=== PATIENT | male | born 1975 | race Caucasian/White ===

== ENCOUNTER 2017-06-05 19:02 | Emergency (ER) | payer MEDICAID ==
[2017-06-05 20:18] LABS: BASOPHILS 0.3 % (0-2); EOSINOPHILS 0.6 % (0-7); HEMATOCRIT 40.8 % (42.0-54.0); HEMOGLOBIN 14.3 g/dL (13.5-17.5); IMMATURE GRANULOCYTES 0.3 % (0-5); LYMPHOCYTES 17.8 % (15-50); MCH 30.2 pg (26.0-34.0); MCV 86.1 fL (80.0-100.0); MEAN PLATELET VOLUME 9.2 fL (7.4-10.4); MONOCYTES 11.8 % (2-11); NEUTROPHILS 69.2 % (40-80); PLATELET COUNT 290 10x3/uL (130-400); RBC 4.74 10x6/uL (4.20-6.10); RDW 12.7 % (11.5-14.5); WBC 13.9 10x3/uL (4.8-10.8)
[2017-06-05 20:59] LABS: ALBUMIN 3.4 g/dL (3.4-5.0); ANION GAP 9.3 mmol/L (8-16); BILIRUBIN - TOTAL 0.6 mg/dL (0.2-1.3); CALCIUM 9.1 mg/dL (8.5-10.1); CARBON DIOXIDE 31.6 mmol/L (21.0-32.0); CREATININE - SERUM 1.5 mg/dL (0.6-1.3); POTASSIUM - SERUM 3.9 mmol/L (3.5-5.1); PROTEIN - SERUM 8.6 g/dL (6.4-8.2)
[2017-06-05 21:15] LABS: APPEARANCE CLEAR (CLEAR); BILIRUBIN NEGATIVE (NEGATIVE); COLOR YELLOW (YELLOW); GLUCOSE NEGATIVE (NEGATIVE); KETONE NEGATIVE (NEGATIVE); LEUKOCYTE ESTERASE NEGATIVE (NEGATIVE); NITRITE NEGATIVE (NEGATIVE); PROTEIN NEGATIVE (NEGATIVE); UROBILINOGEN NORMAL (NORMAL)
[2017-06-05 21:21] LABS: UDS - AMPHET POSITIVE QUAL (NEGATIVE); UDS - BARB NEGATIVE QUAL (NEGATIVE); UDS - BENZO POSITIVE QUAL (NEGATIVE); UDS - COCAINE NEGATIVE QUAL (NEGATIVE); UDS - METH NEGATIVE QUAL (NEGATIVE); UDS - OPIATE NEGATIVE QUAL (NEGATIVE); UDS - PCP NEGATIVE QUAL (NEGATIVE); UDS - THC POSITIVE QUAL (NEGATIVE)
== END 2017-06-05 23:06 | disposition home or self-care (01) ==
LOC: D.ER 19:02
PROVIDERS: Family Medicine
DX: L02.818 Cutaneous abscess of other sites (principal); B95.62 Methicillin resistant Staphylococcus aureus infection as the cause of diseases classified elsewhere; R50.9 Fever, unspecified; R11.0 Nausea; R53.83 Other fatigue; R53.81 Other malaise; F17.200 Nicotine dependence, unspecified, uncomplicated

== ENCOUNTER 2019-06-28 17:05 | Emergency (ER) | payer MEDICAID ==
[~2019-06-28] VITALS: Ht 182.9 cm; Wt 95.5 kg
[2019-06-28 17:24] VITALS: Ht 182.9 cm; Wt 95.5 kg
[2019-06-28] MEDS ORDERED: NEURONTIN600 MG PO (17:25)
[2019-06-28] MEDS ORDERED: CLEOCIN HCL300 MG PO (17:26)
[2019-06-28 18:38] LABS: BASOPHILS 0.9 % (0-2); EOSINOPHILS 1.2 % (0-7); HEMATOCRIT 40.3 % (42.0-54.0); HEMOGLOBIN 14.1 g/dL (13.5-17.5); IMMATURE GRANULOCYTES 0.2 % (0-5); LYMPHOCYTES 33.7 % (15-50); MCH 30.6 pg (26.0-34.0); MCV 87.4 fL (80.0-100.0); MEAN PLATELET VOLUME 9.5 fL (7.4-10.4); MONOCYTES 11.2 % (2-11); NEUTROPHILS 52.8 % (40-80); RBC 4.61 10x6/uL (4.20-6.10); RDW 13.3 % (11.5-14.5); WBC 5.7 10x3/uL (4.8-10.8)
[2019-06-28 18:52] LABS: ALBUMIN 3.8 g/dL (3.4-5.0); ALKALINE PHOSPHATASE 72 U/L (46-116); ALT (SGPT) 30 U/L (10-68); BILIRUBIN - TOTAL 0.47 mg/dL (0.2-1.3); CALC OSMOLALITY 284 mosm/kg (275-300); CALCIUM 8.7 mg/dL (8.5-10.1); CARBON DIOXIDE 28.7 mmol/L (21.0-32.0); CHLORIDE - SERUM 105 mmol/L (98-107); CREATININE - SERUM 1.1 mg/dL (0.6-1.3); GLUCOSE 96 mg/dL (74-106); POTASSIUM - SERUM 4.5 mmol/L (3.5-5.1); PROTEIN - SERUM 7.5 g/dL (6.4-8.2); SODIUM 141 mmol/L (136-145); UREA NITROGEN 23 mg/dL (7-18); eGFR NON AFRICAN AMERICAN 76 mL/min (90-120)
[2019-06-28 18:53] LABS: PLATELET COUNT 215 10x3/uL (130-400)
[2019-06-28] MEDS ORDERED: CYCLOBENZAPRINE10 MG PO (19:29)
[2019-06-28] MEDS ORDERED: NAPROSYN500 MG PO (19:29)
[2019-06-28 19:35] LABS: APPEARANCE CLEAR (CLEAR); BILIRUBIN NEGATIVE (NEGATIVE); COLOR YELLOW (YELLOW); GLUCOSE NEGATIVE (NEGATIVE); KETONE NEGATIVE (NEGATIVE); NITRITE NEGATIVE (NEGATIVE); PROTEIN NEGATIVE (NEGATIVE); UROBILINOGEN NORMAL (NORMAL)
[2019-06-28 19:47] VITALS: BP 116/67
== END 2019-06-28 19:47 | disposition home or self-care (01) ==
LOC: D.ER 17:05
PROVIDERS: Family Medicine
DX: S16.1XXA Strain of muscle, fascia and tendon at neck level, initial encounter (principal); V43.62XA Car passenger injured in collision with other type car in traffic accident, initial encounter; Y93.89 Activity, other specified; Y92.410 Unspecified street and highway as the place of occurrence of the external cause; M62.838 Other muscle spasm; S29.012A Strain of muscle and tendon of back wall of thorax, initial encounter